=== PATIENT | male | born 1955 | race Caucasian/White ===

== ENCOUNTER 2017-10-16 06:27 | Day surgery (SDC) | payer OTHER ==
[~2017-10-16 06:27] MED LIST: Buffered Lidocaine 0.9% SYRIN* 5 ML/SYR SYRINGE INTRADERM ONE
[2017-10-16] MEDS ORDERED: Midazolam* 1 MG/ML 2 ML VIAL (2 MG) ONE ×2 (07:34→08:47)
--- NOTE | 2017-10-16 08:06 | RAD ---
Indication: Renal calculi, preshock wave lithotripsy. Comparison is made with previous exam dated September 20, 2017. Single view of the abdomen demonstrates calcification overlying the lower pole of the left kidney measuring 13 mm. There may be additional small 3 to 4 mm calcification inferior and medial. In the right kidney calcification measuring 12 mm is noted. There may be small additional calculi noted. No changes noted since previous exam. IMPRESSION: Multiple calculi overlying both kidneys measuring up to 13 mm on the left and 12 mm on the right. No changes noted since prior exam.
[2017-10-16] MEDS ORDERED: Naloxone* 0.4 MG/ML 1 ML VIAL IV PRN (08:36)
[2017-10-16] MEDS ORDERED: PROCHLORPERAZINE INJ 5 MG/ML 2 ML VIAL IV PRN (08:36)
[2017-10-16] MEDS ORDERED: DiMENhydriNATE IV* 50 MG/ML VIAL IV PUSH PRN (08:36)
[2017-10-16] MEDS ORDERED: Acetaminophen TAB* 325 MG PO PRN (08:36)
[2017-10-16] MEDS ORDERED: Iohexol 180 (CONTRAST) 10 ML SDV IV ONE (08:39)
[2017-10-16] MEDS ORDERED: Lidocaine 2% PF * 5 ML VIAL ONE (09:14)
[2017-10-16] MEDS ORDERED: Dexamethasone IV* 4 MG/ML 1 ML (4 MG) ONE (09:15)
[2017-10-16] MEDS ORDERED: Propofol* 10 MG/ML 20 ML BTL IV PUSH ONE (09:15)
[2017-10-16] MEDS ORDERED: fentaNYL* 50 MCG/ML 2 ML VIAL (100 MCG VIAL) ONE ×2 (09:18→11:19)
--- NOTE | 2017-10-16 09:19 | HP ---
CC: Dr. Galvin; Dr. Kern * ADMITTING HISTORY AND PHYSICAL: DATE OF ADMISSION: 10/16/17 PREOPERATIVE DIAGNOSIS: Bilateral renal calculi. PLANNED PROCEDURE: Right stent insertion and shockwave lithotripsy of right renal calculi. SURGEON: Castillo Kern MD. HISTORY OF PRESENT ILLNESS: Serge Hancock is a 62-year-old gentleman with a history of bilateral renal calculi who has been having increasing right flank pain and is now being brought in for right stent insertion and shockwave lithotripsy of right renal calculi. PAST MEDICAL HISTORY: Significant for: 1. Renal calculi. 2. Gout. 3. Hypertension. 4. High cholesterol. 5. History of thyroid cancer. MEDICATIONS: On admission: 1. Allopurinol 300 mg a day. 2. Norvasc 5 mg a day. 3. Indomethacin 50 mg t.i.d. 4. Valsartan 80 mg a day. 5. Atorvastatin 10 mg a day. 6. Levothyroxine 150 mcg a day. 7. Aspirin 81 mg a day. ALLERGIES: No known drug allergies. REVIEW OF SYSTEMS: He denies any chest pain or shortness of breath. There is no history of diabetes mellitus or any other major systemic illness. PHYSICAL EXAMINATION GENERAL: Reveals a pleasant middle-aged gentleman. VITAL SIGNS: Blood pressure is 130/94, pulse 93 per minute, temperature 97.6, oxygen saturation 98% on room air. LUNGS: Clear bilaterally. CARDIOVASCULAR: Regular rate and rhythm. S1, S2. ABDOMEN: Soft with mild bilateral flank tenderness. DIAGNOSTIC STUDIES/LAB DATA: His most recent ultrasound had revealed a 1.5-cm calculus in the lower pole of the right kidney and 0.8-cm calculus in the mid pole in addition to large left-sided calculi which are about 1.6 cm in the left kidney. IMPRESSION: Because of the large stone size and multiplicity, I have explained to him that he may require more than one procedure to render him stone free. The plan today is for right stent insertion and shockwave lithotripsy of right renal calculi. I have discussed the possible risks including bleeding, infection, incomplete fragmentation, and injury to the kidney. PLAN: Right stent insertion and shockwave lithotripsy of right renal calculi. [id number]/[facility] #: [id number] [facility]
[2017-10-16] MEDS ORDERED: Metoclopramide IV* 5 MG/ML 2 ML VIAL ONE (09:23)
[2017-10-16] MEDS ORDERED: Furosemide IV* 10 MG/ML 2 ML VIAL (20 MG) ONE (09:34)
[2017-10-16] MEDS ORDERED: Desflurane* 240 ML INH ONE (09:48)
[2017-10-16] MEDS ORDERED: EPHEDrine (Pressors)* 50 MG/ML VIAL ONE (09:56)
[2017-10-16] MEDS ORDERED: Tamsulosin CAP* 0.4 MG ONE (10:49)
[2017-10-16] MEDS ORDERED: oxyCODONE/Acetamin 5/325 MG* TAB ONE (11:02)
--- NOTE | 2017-10-16 11:14 | OP ---
CC: Dr. Naveen Galvin DATE OF OPERATION: 10/16/2017. DATE OF : 1955. AGE: 62-year-old male. SURGEON: Dr. Castillo Kern. ANESTHESIOLOGIST: Dr. Candelario. ANESTHESIA: Anesthesia. PRE-OP DIAGNOSIS: 1. Right renal calculi. 2. Right flank pain. POST-OP DIAGNOSIS: 1. Right renal calculi. 2. Right flank pain. OPERATIVE PROCEDURE: 1. Cystoscopy, right retrograde pyelogram and right stent insertion. 2. Shockwave lithotripsy of right renal calculus. COMPLICATIONS: None. INDICATIONS: Serge Hancock is a 62-year-old gentleman who was evaluated and noted to have bilate ral renal calculi. He has had increasing right flank pain and is now being brought in for right sten t insertion and shockwave lithotripsy. He has two stones in the right kidney and I have explained to him that I may only be able to fragment one stone because of the limitations of the number of shock waves that I can use safely. POSTOPERATIVE CONDITION: Stable. DESCRIPTION OF PROCEDURE: After induction of general anesthesia, the patient was placed on the litho tripsy table in the dorsal lithotomy position. Sequential compression devices were in place and func tioning. Initial cystoscopy revealed a mild stricture at the urethral meatus. The remainder of the urethra was unremarkable. The prostate was mildly enlarged. The bladder was examined. A tiny bladd er calculus was noted which was flushed out. A guidewire was introduced into the right ureter. Retr ograde pyelogram revealed no evidence of obstruction and no persistent filling defects, and a 7 Frenc h stent was introduced and positioned under fluoroscopy with good proximal and distal positioning obt ained. Next, the patient was placed on the lithotripsy table in supine position. The dominant calculus was in the upper pole of the right kidney and this was targeted for shockwave lithotripsy. Shockwave lithotripsy was commenced at a rate of 90 shocks per minute. After the initial 300 shocks, there was a pause in lithotripsy for several minutes in an effort to minimize any potential trauma t o the kidney. Lithotripsy was then resumed. Periodic imaging revealed good localization and a total of 2400 shocks were delivered. Because of the large size of this calculus, I did not have any shock waves left over to use for the other stone in the right kidney, so that was not treated. The plan i s to obtain a follow-up x-ray to assess the degree of fragmentation of the upper pole calculus before deciding on when to treat the additional right renal calculus. He also has a large calculus in the left kidney which will require treatment at the later date also. The patient tolerated the procedure satisfactorily and was transferred back to the recovery area in s table condition. [id number]/[facility] #: [id number]
[2017-10-16] MEDS: fentaNYL* 50 MCG/ML 2 ML VIAL (100 MCG VIAL) IV PRN ×2 (11:19→11:26)
[2017-10-16 11:36] VITALS: BP 154/113
--- NOTE | 2017-10-16 15:06 | RAD ---
Indication: Right-sided stent insertion. Single view of the abdomen demonstrates right ureteral stent in place. Calcification is noted in the upper pole of the right kidney. IMPRESSION: Right ureteral stent in place. Calcification in the upper and midpole of the right kidney.
== END 2017-10-16 12:25 | disposition home or self-care (01) ==
LOC: OR 06:27
PROVIDERS: ATTEND Urology
DX: N20.0 Calculus of kidney (principal); I10 Essential (primary) hypertension; M10.9 Gout, unspecified; E78.00 Pure hypercholesterolemia, unspecified; Z85.850 Personal history of malignant neoplasm of thyroid; Z79.899 Other long term (current) drug therapy
CPT/HCPCS: 74018; A9270-GY; C1876; J1100; J1940; J2250; J2704; J2765; J3010

== ENCOUNTER 2018-02-19 05:51 | Day surgery (SDC) | payer OTHER ==
--- NOTE | 2018-02-07 16:37 | HP ---
CC: Dr. Galvin * DATE OF ADMISSION: 02/19/2018 AGE: 62-year-old male. ADMITTING DIAGNOSIS: Right renal calculi. PLANNED PROCEDURE: Right stent insertion and shockwave lithotripsy of right renal calculi. SURGEON: Dr. Castillo Kern. HISTORY OF PRESENT ILLNESS: Serge Hancock is a 62-year-old gentleman with a history of multiple bilateral renal calculi. He has previously undergone treatment for a calculus in the right kidney and at that time had been noted to have another large calculus which could not be treated. He is now being brought in for right stent insertion and lithotripsy. PAST MEDICAL HISTORY: Significant for: 1. Hypertension. 2. High cholesterol. 3. Gout. 4. Hypothyroidism. MEDICATIONS ON ADMISSION: 1. Allopurinol 200 mg a day. 2. Levothyroxine 135 mcg daily. 3. Amlodipine 5 mg a day. 4. 8 mg a day. 5. Atorvastatin 10 mg a day. ALLERGIES: No known drug allergies. REVIEW OF SYSTEMS: He is otherwise in good health. There is no history of diabetes mellitus or any other major systemic illness. PHYSICAL EXAMINATION GENERAL: Pleasant, healthy-appearing, middle-aged gentleman. VITAL SIGNS: Blood pressure 140/80, pulse 92 per minute, temperature 96.9, oxygen saturation 98 percent on room air. CARDIOVASCULAR: Regular rate and rhythm. S1, S2. LUNGS: Clear bilaterally. ABDOMEN: Soft without masses. There is mild right flank tenderness. IMPRESSION: [id number]-old gentleman with multiple bilateral renal calculi. PLAN: Planned procedure is right stent insertion and shockwave lithotripsy of right renal calculi. [id number]/[facility] #: [id number] [facility]
[2018-02-19] MEDS ORDERED: Famotidine IV* 10 MG/ML 2 ML (20 mg) IV ONE (06:00)
[2018-02-19] MEDS ORDERED: Buffered Lidocaine 0.9% SYRIN* 5 ML/SYR SYRINGE INTRADERM ONE (06:00)
[2018-02-19] MEDS ORDERED: Famotidine IV* 10 MG/ML 2 ML (20 mg) ONE (06:53)
[2018-02-19] MEDS ORDERED: cefTRIAXone(*) 2 GM ADDV.VIAL IVPB ONE (06:53)
[2018-02-19] MEDS ORDERED: Labetalol IV* 5 MG/ML 20 ML VIAL ONE (06:54)
[2018-02-19] MEDS ORDERED: Ondansetron INJ* 2 MG/ML VIAL ONE (07:11)
[2018-02-19] MEDS ORDERED: Propofol* 10 MG/ML 20 ML BTL IV PUSH ONE (07:11)
[2018-02-19] MEDS ORDERED: Ketorolac INJ* 30 MG/ML 1 ML VIAL ONE (07:11)
[2018-02-19] MEDS ORDERED: Lidocaine 2% PF * 5 ML VIAL ONE (07:11)
[2018-02-19] MEDS ORDERED: Dexamethasone IV* 4 MG/ML 1 ML (4 MG) ONE (07:11)
[2018-02-19] MEDS ORDERED: Iohexol 180 (CONTRAST) 10 ML SDV IV ONE (07:12)
[2018-02-19] MEDS ORDERED: KETAMINE HCL* 50 MG/ML 10 ML VIAL ONE (07:12)
[2018-02-19] MEDS ORDERED: Midazolam* 1 MG/ML 5 ML VIAL (5 MG) ONE (07:12)
[2018-02-19] MEDS ORDERED: fentaNYL* 50 MCG/ML 2 ML VIAL (100 MCG VIAL) ONE ×2 (07:12→10:03)
[2018-02-19] MEDS ORDERED: Enalaprilat IV* 1.25 MG/ML 2 ML VIAL (2.5 MG) ONE ×2 (07:28)
--- NOTE | 2018-02-19 07:51 | RAD ---
INDICATION: Planned shock wave lithotripsy for right renal calculus COMPARISON: Similar KUB dated December 12, 2017 TECHNIQUE: 2 views the abdomen were obtained. FINDINGS: Overlying the right renal collecting system are at least 3 focal calcifications, the largest lower pole measuring 12 mm in greatest dimension and 2 relatively smaller calcifications each measuring 6 mm overlying the lower pole and upper pole of the right renal collecting system. At the lower pole of the left renal collecting system is a 15 mm calcification. No definite large calcification overlying either ureter or the urinary bladder. Calcification overlying the right upper quadrant could be due to gallstones. The gas and stool pattern of the abdomen is otherwise normal. IMPRESSION:BILATERAL RENAL CALCIFICATIONS DESCRIBED ABOVE SIMILAR IN APPEARANCE TO THE MOST RECENT DECEMBER 12, 2017 KUB.
[2018-02-19] MEDS ORDERED: Furosemide IV* 10 MG/ML 2 ML VIAL (20 MG) ONE ×2 (09:43→11:22)
[2018-02-19] MEDS ORDERED: EPHEDrine (Pressors)* 50 MG/ML VIAL ONE (10:06)
[2018-02-19] MEDS ORDERED: fentaNYL* 50 MCG/ML 2 ML VIAL (100 MCG VIAL) IV PRN (10:10)
[2018-02-19] MEDS ORDERED: Naloxone* 0.4 MG/ML 1 ML VIAL IV PRN (10:10)
[2018-02-19] MEDS ORDERED: Ondansetron INJ* 2 MG/ML VIAL IV PRN (10:10)
[2018-02-19] MEDS ORDERED: Tamsulosin CAP* 0.4 MG ONE (11:22)
[2018-02-19 12:36] VITALS: BP 141/90
--- NOTE | 2018-02-19 14:34 | RAD ---
Indication: Lithotripsy, renal calculus. Comparison is made with previous exam earlier the same day. Single view of the abdomen demonstrates right ureteral stent in place. There is fragmentation of the dominant calculi in the right renal collecting system. Left renal calculi appear similar to that seen previously. Calculi in the upper pole of the right kidney remains unchanged. IMPRESSION: Dominant calculi overlying the right renal pelvis is fragmented. Right ureteral stent is in place. Calculi in the upper pole of the right kidney in the lower pole of left kidney appears to be unchanged.
--- NOTE | 2018-02-19 21:23 | OP ---
CC: Dr. Galvin * DATE OF OPERATION: 02/19/18 - [facility] DATE OF : [birth year] SURGEON: Castillo Kern MD ANESTHESIOLOGIST: Dr. Mckeon. ANESTHESIA: General. PRE-OP DIAGNOSIS: Right renal calculi. POST-OP DIAGNOSIS: Right renal calculi. OPERATIVE PROCEDURE: 1. Cystoscopy, right retrograde, right stent insertion. 2. Shockwave lithotripsy of multiple right renal calculi. COMPLICATIONS: None. POSTOPERATIVE CONDITION: Stable. STENT USED: 7-Icelandic stent right ureter. INDICATIONS: Serge Hancock is a 62-year-old gentleman with multiple bilateral renal calculi. He had previously undergone lithotripsy of several right-sided calculi, but had one large calculus which has not been treated. OPERATIVE FINDINGS: 1. Moderately enlarged prostate. 2. Multiple right renal calculi. DESCRIPTION OF PROCEDURE: After induction of general anesthesia, the patient was placed in dorsal lithotomy position. Sequential compression devices were in place and functioning. Initial cystoscopy revealed a mild stricture at the urethral meatus. The remainder of the urethra was unremarkable. The prostate was significantly enlarged. The bladder was examined. There was no evidence of any suspicious bladder lesions noted. There were mild changes suggestive of chronic inflammation noted in the floor of the bladder. Right retrograde pyelogram revealed fullness of the right collecting system with multiple calculi noted in the right kidney. A 7-Icelandic stent was introduced and positioned under fluoroscopy with good proximal and distal positioning obtained. Next, the patient was placed on the lithotripsy table in supine position. The dominant calculus was in the upper pole of the right kidney with additional stones noted in the mid to lower pole. Shockwave lithotripsy was commenced at a rate of 60 shocks per minute. After the initial 300 shocks, there was a pause in lithotripsy for several minutes in an effort to minimize any potential trauma to the kidney. Lithotripsy was then resumed and a total of 2400 shocks were distributed between the three calculi. The patient tolerated the procedure satisfactorily and was transferred back to the recovery area in stable condition. My plan is to obtain a postoperative x- ray to assess the degree of fragmentation before deciding on stent removal. [id number]/[facility] #: [id number] MTDD
== END 2018-02-19 12:51 | disposition home or self-care (01) ==
LOC: OR 05:51
PROVIDERS: ATTEND Urology
DX: N20.0 Calculus of kidney (principal); I10 Essential (primary) hypertension; E03.9 Hypothyroidism, unspecified; E78.00 Pure hypercholesterolemia, unspecified; M10.9 Gout, unspecified; K21.9 Gastro-esophageal reflux disease without esophagitis; Z85.850 Personal history of malignant neoplasm of thyroid
CPT/HCPCS: 74018; C1876; J0696; J1100; J1885; J1940; J2250; J2405; J2704; J3010

== ENCOUNTER 2019-04-04 22:38 | Inpatient (IN) | payer OTHER ==
--- NOTE | 2019-04-04 23:07 | ED ---
Complex/Multi-Sys Presentation - HPI Summary HPI Summary: This pt Is a 63 Y/O M presenting to [facility] with his for a CC of abnormal bleeding that has been occurring for 2 weeks. He states that the symptoms started with a nose bleed and bleeding gums and has increased to other parts of his body including both thumbs and his R forearm and bicep. Currently he states that he has a R nostril bleed that has been present since 1529 today. He also states that he has developed ulcers on the roof of his mouth. He also states red dots appearing over his body. He denies any recent fatigue, fevers, CP, SOB , coughs, and weight loss. He has no aggravating or alleviating factors. He states that he has a PMHx of thyroid complications and high blood pressure. He states that he has a social history of drinking a beer a night. - History Of Current Complaint Chief Complaint: EDEpistaxis Time Seen by Provider: 04/04/19 22:49 Hx Obtained From: Patient Onset/Duration: Sudden Onset, Lasting Weeks - 3, Still Present Timing: Constant Severity Currently: None Severity Initially: Mild Aggravating Factor(s): none Alleviating Factor(s): none Associated Signs And Symptoms: Negative: SOB, Cough, Chest Pain, Fever - Allergies/Home Medications Allergies/Adverse Reactions: Allergies Allergy/AdvReac Type Severity Reaction Status Date / Time No Known Allergies Allergy Verified 04/04/19 22:43 Home Medications: Home Medications cloNIDine TAB* [Catapres 0.1 MG TAB*] 0.1 mg PO Q8HR PRN 04/04/19 [History Confirmed 04/04/19] PMH/Surg Hx/FS Hx/Imm Hx Previously Healthy: Yes Endocrine/Hematology History: Reports: Hx Thyroid Disease - HX OF THYROIDECTOMY- 7-8 YRS AGO FOR CANCER Cardiovascular History: Reports: Hx Hypertension - ON MEDICATION FOR, Other Cardiovascular Problems/Disorders - HIGH CHOLESTEROL Denies: Hx Pacemaker/ICD History: Reports: Hx Kidney Stones - BILATERAL Sensory History: Denies: Hx Contacts or Glasses, Hx Hearing Aid Opthamlomology History: Denies: Hx Contacts or Glasses - Surgical History Surgery Procedure, Year, and Place: [id number] YRS AGO. [address] [facility] [place] Hx Anesthesia Reactions: No - Immunization History Immunizations Up to Date: Yes Infectious Disease History: No Infectious Disease History: Reports: Traveled Outside the [place] in Last 30 Days - [place] - Family History Known Family History: Positive: Hypertension Negative: Cardiac Disease, Diabetes - Social History Occupation: Retired Lives: With Family Alcohol Use: Daily Alcohol Amount: 1 PER DAY Hx Substance Use: No Substance Use Type: Reports: None Hx Tobacco Use: No Smoking Status (MU): Never Smoked Tobacco Have You Smoked in the Last Year: No Review of Systems Constitutional: Negative - weight loss Negative: Fever, Fatigue ENT: Other - States mouth sores/gum bleeding Positive: Epistaxis - R nare Negative: Chest Pain Negative: Shortness Of Breath, Cough Musculoskeletal: Other - Bilateral thumbs and R forearm/bicep bleeding Skin: Other - States that he has beel bleeding/developing bruises over his body Positive: Rash - States red spots appearing over his body All Other Systems Reviewed And Are Negative: Yes Physical Exam - Summary Physical Exam Summary: Constitutional: Well-developed, Well-nourished, Alert. (-) Distressed Skin: Warm, Dry, Scattered petechiae over entire body mostly arms and abdomen, Bruising on both thumbs, R forearm and bicep HENT: Normocephalic; Atraumatic, Petechiae of the hard pallet, dried blood in the R nare. Two small ulcers oral mucosa. Eyes: Conjunctiva normal Neck: Musculoskeletal ROM normal neck. (-) JVD, (-) Stridor, (-) Nuchal rigidity Cardio: Rhythm regular, rate normal, Heart sounds normal; Intact distal pulses; Radial pulses are 2+ and symmetric. (-) Murmur Pulmonary/Chest wall: Effort normal. (-) Respiratory distress, (-) Wheezes, (-) Rales Abd: Soft, (-) tenderness, (-) Distension, (-) Guarding, (-) Rebound Musculoskeletal: (-) Edema Lymph: (-) Cervical adenopathy Neuro: Alert, Oriented x3 Psych: Mood and affect Normal Triage Information Reviewed: Yes Vital Signs On Initial Exam: Initial Vitals Temp Pulse Resp BP Pulse Ox 97.4 F 94 16 186/131 98 04/04/19 22:40 04/04/19 22:40 04/04/19 22:40 04/04/19 22:40 04/04/19 22:40 Vital Signs Reviewed: Yes Procedures - Sedation Patient Received Moderate/Deep Sedation with Procedure: No Diagnostics - Vital Signs Vital Signs Temp Pulse Resp BP Pulse Ox 04/04/19 22:40 97.4 F 94 16 186/131 98 - Laboratory Result Diagrams: 04/04/19 23:06 04/04/19 23:05 Lab Statement: Any lab studies that have been ordered have been reviewed, and results considered in the medical decision making process. Re-Evaluation - Re-Evaluation First Eval Comment: Platelets 4, will d/w hematology Complex Multi-Symp Course/Dx Course Of Treatment: 63 y/o male p/w epistaxis and gum bleeding. PE with petechiae of palate, scattered ecchymosis to arms, petechiae of abdomen, blood in R nare. - check labs. Ddx includes ITP, malignancy - Diagnoses Provider Diagnoses: Thrombocytasthenia, Cytopenia, Nasal bleeding - Physician Notifications Discussed Care Of Patient With: Giselle Pedroza Time Discussed With Above Provider: 00:00 Instructed by Provider To: Admit As Inpatient - Dr. Pedroza, hematology, recommended giving the pt 80 mgs of Prednisone and to admit the pt to the floor where she will see him tomorrow. Will hold on transfusion as likely ITP and no life threatening bleeding. Dr. Benavides, Hospitalist, accepts the pt. Admit/Transition Orders Completed By ED Provider: Yes Discharge ED - Sign-Out/Discharge Documenting (check all that apply): Patient Departure - discharge - Discharge Plan Condition: Stable Disposition: ADMITTED TO [facility] Referrals: Naveen Galvin DO [Primary Care Provider] - - Billing Disposition and Condition Condition: STABLE Disposition: Admitted to [facility] - Attestation Statements Document Initiated by Scribe: Yes Documenting Scribe: Chato Garcia Provider For Whom Rosa Mariaibe is Documenting (Include Credential): Neel Yoder MD Scribe Attestation: Chato Russo, scribed for Neel Yoder MD on 04/05/19 at 0135. Scribe Documentation Reviewed: Yes Provider Attestation: The documentation as recorded by the [facility] kitchen accurately reflects the service I personally performed and the decisions made by me, Neel Yoder MD Status of Scribe Document: Viewed
[2019-04-04] MEDS ORDERED: Oxymetazoline 0.05% NASAL SPR* 15 ML BTL BOTH NARES ONE (23:09)
[2019-04-04 23:19] LABS: INR 0.99 (0.82-1.09)
[2019-04-04 23:25] LABS: Hematocrit 41 % (42-52); Mean Corpuscular HGB Conc 34 g/dL (31-36); Mean Corpuscular Hemoglobin 30 pg (27-31); Mean Corpuscular Volume 89 fL (80-94); Red Blood Count 4.62 10^6 /uL (4.18-5.48); Red Cell Distribution Width 14 % (10-15); White Blood Count 8.7 10^3/uL (3.5-10.8)
[2019-04-04 23:28] LABS: Albumin 4.2 g/dL (3.2-5.2); Albumin/Globulin Ratio 1.4 (1-3); BUN/Creatinine Ratio 21.6 (8-20); Calcium 9.1 mg/dL (8.6-10.3); EGFR African American 76.5 (>60); EGFR Non-African American 63.2 (>60); Globulin 2.9 g/dL (2-4); Total Bilirubin 0.6 mg/dL (0.2-1.0); Total Protein 7.1 g/dL (6.4-8.9)
[2019-04-04 23:29] LABS: ABS Eosinophils 0.3 10^3/ul (0-0.6); ABS Lymphocytes 3.1 10^3/ul (1.0-4.8); ABS Monocytes 0.8 10^3/ul (0-0.8); ABS Neutrophils 4.6 10^3/ul (1.5-7.7); Eosinophil % 3.4 %; Lymphocyte % 35.2 %; Nucleated Red Blood Cells % 0.1
[2019-04-04 23:50] LABS: Mean Platelet Volume 10.4 fL (7.4-10.4); Platelet Count 4 10^3/uL (150-450)
[2019-04-04 23:52] LABS: Potassium 3.4 mmol/L (3.5-5.0)
[2019-04-05] MEDS ORDERED: predniSONE TAB* 20 MG PO ONE
[2019-04-05 02:51] LABS: Platelet Count, Citrated 2 10^3/ul (150-450)
[2019-04-05] MEDS ORDERED: cloNIDine TAB* 0.1 MG PO PRN (03:00)
[2019-04-05] MEDS: NS 0.9% 1000 ML** 1,000 ML IV SCH ×2 (04:34→14:55)
[2019-04-05 06:17] LABS: ABS Basophils 0.1 10^3/ul (0-0.2); ABS Monocytes 0.2 10^3/ul (0-0.8); ABS Neutrophils 9.6 10^3/ul (1.5-7.7); Eosinophil % 0.3 %; Hematocrit 43 % (42-52); Hemoglobin 14.7 g/dL (14.0-18.0); Lymphocyte % 16.7 %; Mean Corpuscular HGB Conc 35 g/dL (31-36); Mean Corpuscular Hemoglobin 31 pg (27-31); Mean Corpuscular Volume 89 fL (80-94); Red Cell Distribution Width 14 % (10-15); White Blood Count 11.9 10^3/uL (3.5-10.8)
[2019-04-05] MEDS: Levothyroxine TAB* 137 MCG TAB PO SCH (06:25)
[2019-04-05 06:32] LABS: Calcium 9.3 mg/dL (8.6-10.3); EGFR African American 78.8 (>60); EGFR Non-African American 65.1 (>60)
[2019-04-05 06:37] LABS: Mean Platelet Volume 10.6 fL (7.4-10.4); Platelet Count 3 10^3/uL (150-450)
[2019-04-05] MEDS: Valsartan TAB* 80 MG PO SCH (08:46)
[2019-04-05] MEDS: amLODIPine TAB* 5 MG PO SCH (08:46)
[2019-04-05] MEDS: Atorvastatin* 10 MG TAB PO SCH (08:46)
[2019-04-05] MEDS ORDERED: amLODIPine TAB* 5 MG PO SCH (09:00)
--- NOTE | 2019-04-05 09:07 | HP ---
CC: Dr. Giselle Pedroza; Dr. Naveen Galvin* ADMISSION HISTORY AND PHYSICAL: DATE OF ADMISSION: 04/05/19 PRIMARY CARE PROVIDER: Dr. Naveen Galvin. CHIEF COMPLAINT: Nasal epistaxis. HISTORY OF PRESENT ILLNESS: This is a 63-year-old male with past medical history of hypertension, dyslipidemia, gout, hypothyroidism, came in with epistaxis was noted to be in his usual state of health until 3 weeks ago when he had chest wall abscess, which drained on its own and it healed. A week after it healed, the patient noticed that any small cuts and bruises would bleed profoundly. He did not think much of it until yesterday afternoon he started having epistaxis, which would not stop bleeding. He also noticed multiple bruising even with minor trauma, so he decided to come to the ER. In the ER, the patient was noted to have a low platelet count of 4000, and Hematology was consulted and the patient was recommended for admission to the hospital. PAST MEDICAL HISTORY: As mentioned hypertension, high cholesterol, gout, hypothyroidism, kidney stone. PAST SURGICAL HISTORY: Thyroidectomy and right-sided ESWL procedure. HOME MEDICATIONS: The patient is currently on: 1. Clonidine 0.1 mg p.r.n. for anxiety and high blood pressure. 2. Amlodipine 5 mg oral daily every morning. 3. Levothyroxine 137 mcg p.o. daily every morning. 4. Candesartan 16 mg p.o. daily. 5. Lipitor 10 mg every morning. 6. Allopurinol 300 mg p.o. q.a.m. ALLERGIES: No known drug allergies. FAMILY HISTORY: Father is alive at age 93. Mother in between age 88 or 90 , the patient is not sure, had history of Parkinson's disease. There is no family history of any bleeding disorder or any leukemia. SOCIAL HISTORY: The patient denies smoking or drug use. He does have a glass of wine with dinner, but nothing more usually every few days, last use was about 3 days ago. 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 He is otherwise full code, lives with his , who is his surrogate decision maker. REVIEW OF SYSTEMS: A 14-point review of systems did not reveal any information. No recent diarrheal illness. No sick contacts. No fever. No chills. No chest pain. No shortness of breath. No change in medications. PHYSICAL EXAMINATION GENERAL: The patient is awake, alert, and oriented x3, does not appear to be in any acute distress. VITAL SIGNS: In the ER, BP was noted to be 173/106, heart rate 84, respiration rate 15, saturating 97% on room air, temperature 97.4. HEAD AND NECK: Atraumatic and normocephalic. Bilateral pupils are reactive. The patient was having continuous bleeding from the nares and had multiple petechial lesions within the oral cavity. There was also the gumline that was very bloody. Neck supple. No jugular venous distention. LUNGS: Clear to auscultation bilaterally. No wheezing, no rhonchi, or rales. HEART: S1, S2. Regular rate and rhythm. ABDOMEN: Soft, nontender, nondistended. EXTREMITIES: No cyanosis, clubbing, or edema. SKIN: The patient had multiple petechial and purpuric lesions all over the extremities both lower extremity, upper extremity, and in his torso. DIAGNOSTIC STUDIES/LAB DATA: CBC shows normal white count, normal hemoglobin, but platelet count was noted to be 4000. Repeat citrated platelet count was still noted to be 2000. Coagulation profile shows INR of 0.99. Comprehensive metabolic panel was unremarkable except for minimally elevated potassium at 3.4 , random glucose minimally elevated at 164. IMPRESSION: This is a 63-year-old gentleman with hypertension, dyslipidemia, gout, and hypothyroidism, here due to bleeding from nose and excessive bleeding for the last couple of weeks, noted to have thrombocytopenia, likely idiopathic thrombocytopenic purpura. ASSESSMENT: 1. Thrombocytopenia secondary to idiopathic thrombocytopenic purpura, could be related to the recent infection, although the patient does not have any diarrheal illness but the most common cause of sugar related thrombocytopenia and did not change his prescription to cause any drug-induced thrombocytopenia. The patient's case was discussed by the ER physician with reject opener and filler, who recommended prednisone for now and possible IVIG in the morning. I have placed a formal consult in for Dr. Giselle Pedroza to evaluate the patient in the morning. At this point, given the limited bleeding, there is no indication for platelet transfusion. Further testing would be based on Hematology recommendation. 2. History of hypertension. Restart home medications. 3. History of dyslipidemia, restart statin. 4. History of hypothyroidism, restart levothyroxine. 5. DVT prophylaxis. Given the patient's bleeding and thrombocytopenia, heparin and Lovenox would be contraindicated and given his propensity to bleed, even an SCD could cause more abrasion, bleeding and petechiae, so even the SCDs would be held for now. 6. Code status: The patient is a full code with being surrogate decision maker. [id number]/[facility] #: [id number] MTDD
--- NOTE | 2019-04-05 10:30 | CONSULT ---
Subjective Date of Service: 04/05/19 Interval History: 63 y/o M with PMH of HTN, HLD, Gout, Hypothyroidism presented with Epistaxis that started yesterday. He was apparently well 3 weeks ago when he was having pain and swelling on anterior chest wall. He reports that he had cyst-like lesion on the same part for more than a year which was nonpainful and with no redness. Then he developed redness and pain in the same location and it drained on its own draining pus. He did not seek medical care at that time and did not take any antibiotics. He then travelled to [facility] and there he noticed he was bruising easily and even with minor bleed he was bleeding profusely. He reports that even a wave of water caused him to bruise. He also had gum bleeding and yesterday he had bleeding from nose which was acute on onset and was progressive and was bright red in color. On bending his head back he could feel that blood was dropping on his mouth. He reports that this is first time he is having this issue. He denies history of fever, chills, sore throat, malaise or night sweats. He denies diarrhea, numbness, tingling or other neurological symptom. He has not noticed any swelling on other part of body. He has history of thyroidectomy and he does not remember any complication at that time. Past Medical/Family/Social History: Medical 1.Hypertension 2. Hyperlipidemia 3. Gout 4. Hypothyroidism Surgery 1. Thyroidectomy Family - Family history positive for Heart disease, Hypertension and parkinson. Negative for any cancer, bleeding disorder. Consulting Service: Hematology/Oncology Reason for Consult: Patient was consulted for Bleeding with low platelet count. Review of Systems - Medications/Allergies Allergies/Adverse Reactions: Allergies Allergy/AdvReac Type Severity Reaction Status Date / Time No Known Allergies Allergy Verified 04/04/19 22:43 Medications: Current Medications [facility]od[facility] ([facility]*) [facility] [place] Admin: 04/05/19 08:46 Dose: 10 mg Atorvastatin Calcium (Lipitor*) 10 mg PO QAM [facility] Last Admin: 04/05/19 08:46 Dose: 10 mg Sodium Chloride (Ns 0.9% 1000 Ml) 1,000 mls @ 100 mls/hr IV PER RATE [facility] Last Admin: 04/05/19 04:34 Dose: 100 mls/hr Levothyroxine Sodium (Synthroid Tab*) 137 mcg PO 0600 [facility] Last Admin: 04/05/19 06:25 Dose: 137 mcg Valsartan (Diovan Tab*) 80 mg PO DAILY [facility] Last Admin: 04/05/19 08:46 Dose: 80 mg Objective Active Medications: Amlodipine Besylate (Norvasc Tab*) 10 mg PO QAM [facility] Last Admin: 04/05/19 08:46 Dose: 10 mg Atorvastatin Calcium (Lipitor*) 10 mg PO QAM [facility] Last Admin: 04/05/19 08:46 Dose: 10 mg Sodium Chloride (Ns 0.9% 1000 Ml) 1,000 mls @ 100 mls/hr IV PER RATE [facility] Last Admin: 04/05/19 04:34 Dose: 100 mls/hr Levothyroxine Sodium (Synthroid Tab*) 137 mcg PO 0600 [facility] Last Admin: 04/05/19 06:25 Dose: 137 mcg Valsartan (Diovan Tab*) 80 mg PO DAILY [facility] Last Admin: 04/05/19 08:46 Dose: 80 mg Vital Signs - 8 hr 04/05/19 04/05/19 04/05/19 02:54 03:00 03:17 Temperature Pulse Rate 84 87 84 Respiratory 15 18 16 Rate Blood Pressure 173/106 163/107 (mmHg) O2 Sat by Pulse 97 97 96 Oximetry 04/05/19 04/05/19 04/05/19 03:40 03:47 04:00 Temperature 98.5 F Pulse Rate 85 90 86 Respiratory 16 17 17 Rate Blood Pressure 162/108 162/108 (mmHg) O2 Sat by Pulse 96 96 96 Oximetry 04/05/19 04/05/19 04/05/19 04:30 07:15 07:23 Temperature 0 F 97.5 F Pulse Rate 0 90 Respiratory 0 20 18 Rate Blood Pressure 0/0 160/97 (mmHg) O2 Sat by Pulse 0 98 Oximetry Oxygen Devices in Use Now: None Exam: Patient is lying on a bed with no acute distress. HEENT: Dark red streaks of blood in lip. Gum bleeding noted. Lungs: Clear with no added sounds. Heart: S1/S2 heard with no murmur Abdomen: Purpura on abdomen. Slight buldging above umbilicus. No hepatosplenomegaly. Skin and Extremities: Petechiae noted on anterior aspect of both leg with scattered ecchymosis on back of right shoulder, both arms, elbow and on rigth thumb. Neuro: Alert, oriented and conscious. Moving all four extremity. Result Diagrams: 04/05/19 06:05 04/05/19 06:05 Assess/Plan/Problems-Billing Assessment: 63 y/o M with PMH of HTN, HLD, Gout, Hypothyroidism presented with epistaxis, easy bruising and bleeding with recent chest wall abscess. Found to have thrombocytopenia(Plt-3L) with normal WBC and RBC. Most likely ITP - Patient Problems (1) Bleeding disorder Current Visit: Yes Status: Acute Code(s): D69.9 - HEMORRHAGIC CONDITION, UNSPECIFIED SNOMED Code(s): 84898517 Comment: - His easy bruising and bleeding immediately after trauma points to bleeding problme, not coagulation; confirmed by low platelet count. -Etiology: -Most likely ITP- it is daignosis of exclusion-His WBC and RBC is normal which is less likely in lymphoproliferative/myelodispalastic disorder. -Less likely TTP- no fever and neurological symptom and his renal function is normal -less likely HUS- even though positive travel history, no diarrhea and renal dysfunction and hemolysis. -less likely hereditary cause- negative family history, previous surgery without complication and no prior history - We will give him oral prednisone 60 mg daily with protonix 40 mg. - 1 U of platelet infusion now with repeat CBC at 4:00 Pm -IVIG 1g/kg daily for 2 days -Closely follow blood glucose and monitor for any bleeding -He should avoid any trauma because of high risk of bleeding -He will need outpatient follow up with Dr. marc in 4 weeks. (2) Hypertension Current Visit: Yes Status: Acute Code(s): I10 - ESSENTIAL (PRIMARY) HYPERTENSION SNOMED Code(s): 51687986 Comment: On valsartan and amlopdipine (3) Hyperlipidemia Current Visit: Yes Status: Acute Code(s): E78.5 - HYPERLIPIDEMIA, UNSPECIFIED SNOMED Code(s): 10733094 Comment: on atorvastatin (4) DVT prophylaxis Current Visit: Yes Status: Acute Code(s): Z29.9 - ENCOUNTER FOR PROPHYLACTIC MEASURES, UNSPECIFIED SNOMED Code(s): 991713753 Comment: None because of severe thrombocytopenia (5) Full code status Current Visit: Yes Status: Acute Code(s): Z78.9 - OTHER SPECIFIED HEALTH STATUS SNOMED Code(s): 472079131 Status and Disposition: Medicine Inpatient; Hem/Onc following Attending: Wes Marc Attestation Documenting Resident: Tonia Boyce Supervising Physician: Wes Marc Attending/Supervising Physician Comment: Patient discussed with resident seen and examined. Agree with above assessment. Progressive bleeding over 3 weeks with epistaxis day prior to admission. No symptoms malignancy, no h/o immune disease. PE: OM bleeding, diffuse petechial rash. CBC plts 3,000, Nml WBC, RBC. Blood film w/ large plts but otherwise negative. Plan per resident w/Prednisone, IVIG, plts today. Can be discharged once Plts > 20,000. Follow up in clinic will be next week if d/c over weekend. Attestation: This service has been performed in part by a resident under the direction of a teaching physician.I, Wes Marc, performed the service, or was physically present during the critical, or garibay portions of the service, furnished by the resident. I participated in the management of the patient.
[2019-04-05] MEDS: Pantoprazole TAB * 40 MG TAB PO SCH (11:26)
[2019-04-05] MEDS: predniSONE TAB* 20 MG PO SCH (11:27)
[2019-04-05] MEDS ORDERED: [UNRECOGNIZED DRUG - OTHER] IV SCH (12:00)
[2019-04-05] MEDS ORDERED: IMMUNE GLOBULN IV SCH ×2 (12:00→13:48)
--- NOTE | 2019-04-05 12:08 | HP ---
H&P (Free Text) History and Physical: CC: "Epistaxis for prolonged period" HPI: Pt has had abscess on R anterior chest wall for over 1 year duration. Recently abscess spontaneously drained 3 weeks ago. Pt recently traveled to [place] with his were he noticed he had gum bleeding on brushing, mouth sores, and was bruising from minor trauma. Pt admits to having these symptoms prior to travel. Patient noticed nose bleeding on 04/04/19 and could not get bleeding to stop so proceeded to E.R. Pt admits to ecchymosis, petechiae. Pt denies fever/chills, N/V, loss of appetite/weight loss, chest palpitations, SOB , abdominal pain, dysuria, joint pain, myalgia, lethargy or problems c/ BMs. Amlodipine Besylate (Norvasc Tab*) 10 mg PO QAM [facility] Last Admin: 04/05/19 08:46 Dose: 10 mg Atorvastatin Calcium (Lip[facility]*) [facility] [place] Admin: 04/05/19 08:46 Dose: 10 mg Sodium Chloride (Ns 0.9% 1000 Ml) 1,000 mls @ 100 mls/hr IV PER RATE [facility] Last Admin: 04/05/19 04:34 Dose: 100 mls/hr Immune Globulin 80 gm/ Immune (Globulin 8 gm/ IV Solution) 880 mls @ 0 mls/hr IV DAILY@1200 [place]; Protocol Stop: 04/06/19 12:01 Levothyroxine Sodium (Synthroid Tab*) 137 mcg PO 0600 [facility] Last Admin: 04/05/19 06:25 Dose: 137 mcg Pantoprazole Sodium (Protonix Tab*) 40 mg PO DAILY [facility] Last Admin: 04/05/19 11:26 Dose: 40 mg Prednisone (Deltasone Tab*) 60 mg PO DAILY [facility] Last Admin: 04/05/19 11:27 Dose: 60 mg Valsartan (Diovan Tab*) 80 mg PO DAILY [facility] Last Admin: 04/05/19 08:46 Dose: 80 mg Home Medications 3 Medication Instructions Recorded Confirmed Type Allopurinol TAB* [Zyloprim 300 MG 300 mg PO [facility] 10/10/17 04/04/19 History TAB*] Atorvastatin* [Lipitor*] 10 mg PO [facility] 10/10/17 04/04/19 History Levothyroxine TAB* [Synthroid TAB*] 137 mcg PO QAM 10/10/17 04/04/19 History amLODIPine TAB* [Norvasc 5 mg TAB*] 5 mg PO QAM 10/10/17 04/04/19 History Candesartan Cilexetil 16 mg PO DAILY 04/24/18 04/04/19 History cloNIDine TAB* [Catapres 0.1 MG 0.1 mg PO Q8HR PRN 04/04/19 04/04/19 History TAB*] Allergies: NKA Immunizations: Up to date except flu vaccination per patient. PMhx: -HTN -Hyperlipidemia controlled with Atorvastatin 10 mg PO QAM -Gout controlled c/ Allopurinol 300mg PO QAM -Thyroid cancer -Pt denies hx of autoimmune disease Surgeries: -Thyroidectomy aprrox. 10 years ago -Kidney lithotripsy aprrox. 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 . Non-smoker. ETOH: 3-4 wk. Western diet. No regular exercise. Has a dog and cat. Last PCP visit was approx. 1 year ago. PE: Temp Pulse Resp BP Pulse Ox 97.5 F 90 18 160/97 98 04/05/19 07:15 04/05/19 07:15 04/05/19 07:23 04/05/19 07:15 04/05/19 07:15 General: Pt in no apparent distress sitting up in bed. Pt is overweight. A/ Ox3. HEENT: No lymphadenopathy. No thyroid present. No tenderness to palpation. Scabs noted on top and posterior aspect of scalp. Cardio: RRR. Normal S1 and S2. No MRG. Lungs: Clear to auscultation in all aguilar. Abd: Non-tender/ non-distended. No guarding or rebound tenderness. Normal bowel sounds. Skin: Petechiae and purpura noted on multiple locations including arms, legs and abdomen. Abscess noted on R anterior chest wall appears to be healing and is non-tender and is cool to touch. Extremities: 2+ radial and pedal pulses. Sensation to fine touch intact. Abnormal Lab Results 10/24/19 10/24/19 10/24/19 23:05 23:05 23:05 WBC RBC Hgb Hct MCV MCH MCHC RDW Plt Count MPV Neut % (Auto) Lymph % (Auto) Sevier % (Auto) Eos % (Auto) Baso % (Auto) Absolute Neuts (auto) Absolute Lymphs (auto) Absolute Monos (auto) Absolute Eos (auto) Absolute Basos (auto) Absolute Nucleated RBC Nucleated RBC % Plt Count ,Citrate INR (Anticoag Therapy) 0.99 Sodium 138 Potassium 3.4 L Chloride 106 Carbon Dioxide 24 Anion Gap 8 BUN 25 H Creatinine 1.16 Est GFR ( Amer) 76.5 Est GFR (Non-Af Amer) 63.2 BUN/Creatinine Ratio 21.6 H Glucose 164 H Calcium 9.1 Total Bilirubin 0.60 AST 26 ALT 19 Alkaline Phosphatase 109 H Total Protein 7.1 Albumin 4.2 Globulin 2.9 Albumin/Globulin Ratio 1.4 Blood Type O Positive Antibody Screen 04/04/19 04/05/19 04/05/19 23:06 00:09 02:11 WBC 8.7 RBC 4.62 Hgb 14.0 Hct 41 L MCV 89 MCH 30 MCHC 34 RDW 14 Plt Count 4 L* MPV 10.4 Neut % (Auto) 52.5 Lymph % (Auto) 35.2 Sevier % (Auto) 8.6 Eos % (Auto) 3.4 Baso % (Auto) 0.3 Absolute Neuts (auto) 4.6 Absolute Lymphs (auto) 3.1 Absolute Monos (auto) 0.8 Absolute Eos (auto) 0.3 Absolute Basos (auto) 0.0 Absolute Nucleated RBC 0.0 Nucleated RBC % 0.1 Plt Count ,Citrate 2 L* INR (Anticoag Therapy) Sodium Potassium Chloride Carbon Dioxide Anion Gap BUN Creatinine Est GFR ( Amer) Est GFR (Non-Af Amer) BUN/Creatinine Ratio Glucose Calcium Total Bilirubin AST ALT Alkaline Phosphatase Total Protein Albumin Globulin Albumin/Globulin Ratio Blood Type O Positive Antibody Screen Negative 04/05/19 04/05/19 06:05 06:05 WBC 11.9 H RBC 4.80 Hgb 14.7 Hct 43 MCV 89 MCH 31 MCHC 35 RDW 14 Plt Count 3 L* MPV 10.6 H Neut % (Auto) 80.4 Lymph % (Auto) 16.7 Sevier % (Auto) 1.7 Eos % (Auto) 0.3 Baso % (Auto) 0.9 Absolute Neuts (auto) 9.6 H Absolute Lymphs (auto) 2.0 Absolute Monos (auto) 0.2 Absolute Eos (auto) 0.0 Absolute Basos (auto) 0.1 Absolute Nucleated RBC 0.0 Nucleated RBC % 0.0 Plt Count ,Citrate INR (Anticoag Therapy) Sodium 137 Potassium 4.0 Chloride 107 Carbon Dioxide 23 Anion Gap 7 BUN 26 H Creatinine 1.13 Est GFR ( Amer) 78.8 Est GFR (Non-Af Amer) 65.1 BUN/Creatinine Ratio 23.0 H Glucose 188 H Calcium 9.3 Total Bilirubin AST ALT Alkaline Phosphatase Total Protein Albumin Globulin Albumin/Globulin Ratio Blood Type Antibody Screen Assesment/Impression: 63 yo M c/ PMHx of HTN, Gout, hypothyroidism presenting c/ prolonged epistaxis and excessive bleeding 2/2 minor trauma for several weeks following rupture of chest abscess. Pt noted to have severe thrombocytopenia 2/2 to ITP most likely. Plan: #Thrombocytopenia -excessive bleeding secondary to ITP following infection most likely. Waiting on blood smear for platelet morphology, presence of blast cells to r/o luekemia. -Leukocytosis c/ left shift present on repeat CBC, evidence of infectious etiology despite lack of fever/chills. -R/o viral source c/ serology HIV and HCV. -unlikely TTP/HUS due to lack of anemia -Prednisone 60 mg -1 U platelet infusion c/ repeat CBC -IVIG 1g/kg daily for 2 days -monitor BG -bleeding precautions -remain on telemetry #HTN -continue current medications
--- NOTE | 2019-04-05 16:34 | PN ---
Subjective Date of Service: 04/05/19 Interval History: History reviewed, Patient started bruises here and there 3 weeks ago after an skin localized infection on his right chest. He went to [facility] 2 weeks ago and returned. No new medication added other than clonidine for htn 1 month ago. He felt nose blocking, but no nose bleeding anymore. no other GI bleding or hematuria noted. Objective Active Medications: Amlodipine Besylate (Norvasc Tab*) 10 mg PO QAM [facility] Last Admin: 04/05/19 08:46 Dose: 10 mg Atorvastatin Calcium (Lipitor*) 10 mg PO QAM [facility] Last Admin: 04/05/19 08:46 Dose: 10 mg Sodium Chloride (Ns 0.9% 1000 Ml) 1,000 mls @ 100 mls/hr IV PER RATE [facility] Last Admin: 04/05/19 14:55 Dose: 100 mls/hr Immune Globulin 80 gm/ Immune (Globulin 8 gm/ IV Solution) 880 mls @ 0 mls/hr IV ONCE ONE; Protocol Stop: 04/06/19 13:01 Levothyroxine Sodium (Synthroid Tab*) 137 mcg PO 0600 [facility] Last Admin: 04/05/19 06:25 Dose: 137 mcg Pantoprazole Sodium (Protonix Tab*) 40 mg PO DAILY [facility] Last Admin: 04/05/19 11:26 Dose: 40 mg Prednisone (Deltasone Tab*) 60 mg PO DAILY [facility] Last Admin: 04/05/19 11:27 Dose: 60 mg Valsartan (Diovan Tab*) 80 mg PO DAILY [facility] Last Admin: 04/05/19 08:46 Dose: 80 mg Vital Signs - 8 hr 04/05/19 04/05/19 04/05/19 09:45 11:15 13:20 Temperature 98.4 F 97.9 F Pulse Rate 103 106 Respiratory 20 20 18 Rate Blood Pressure 164/91 152/96 (mmHg) O2 Sat by Pulse 97 99 Oximetry 04/05/19 04/05/19 04/05/19 14:20 14:56 15:15 Temperature 98.8 F 98.1 F 98.1 F Pulse Rate 98 100 98 Respiratory 18 18 16 Rate Blood Pressure 149/86 153/84 160/91 (mmHg) O2 Sat by Pulse 97 96 96 Oximetry 04/05/19 15:49 Temperature 98 F Pulse Rate 101 Respiratory 18 Rate Blood Pressure 162/89 (mmHg) O2 Sat by Pulse 97 Oximetry Oxygen Devices in Use Now: None Exam: GEN: well, NAD HEENT: no active bleeding HEART: S1S2, no murmur Lung: clear Abdomen: splenomegaly, 5cm under left costal rib, mild hepatomegaly Extremity: no peripheral edema, joint no swelling Skin: scattered petechiae on bilateral legs, bruises seen on bilateral arms. Result Diagrams: 04/05/19 06:05 04/05/19 06:05 Assess/Plan/Problems-Billing Assessment: 63 y/o M with PMH of HTN, HLD, Gout, Hypothyroidism presented with epistaxis, easy bruising and bleeding for 3 weeks. Found to have isolated thrombocytopenia( Plt-3L). Most likely ITP - Patient Problems (1) Acute ITP Current Visit: Yes Status: Acute Code(s): D69.3 - IMMUNE THROMBOCYTOPENIC PURPURA SNOMED Code(s): 68717585 Comment: - Isolated thrombocytopenia likely to be ITP, could be idopathic ITP or secondary ITP which was induced by infection such as HIV and HCV - check HIV and HCV today - Plt transfusion 1U, IVIG x 2 days, oral steroid as per panel monitor's recommendation - will check CBC agian pm - if plt> 20,000, can be discharged and follow up outpt - put on bleeding precaution (2) Hypertension Current Visit: Yes Status: Acute Code(s): I10 - ESSENTIAL (PRIMARY) HYPERTENSION SNOMED Code(s): 69438417 Comment: On valsartan and amlopdipine amlodipine was increased to 10mg qam (3) DVT prophylaxis Current Visit: Yes Status: Acute Code(s): Z29.9 - ENCOUNTER FOR PROPHYLACTIC MEASURES, UNSPECIFIED SNOMED Code(s): 979962912 Comment: None because of severe thrombocytopenia Status and Disposition: Medicine Inpatient; Hem/Onc following Attestation Documenting Resident: Milli Varghese Supervising Physician: Gabriela Bro Attestation: This service has been performed in part by a resident under the direction of a teaching physician.I, Gabriela Bro, performed the service, or was physically present during the critical, or garibay portions of the service, furnished by the resident. I participated in the management of the patient.
[2019-04-05 16:39] LABS: ABS Lymphocytes 2.5 10^3/ul (1.0-4.8); ABS Monocytes 0.2 10^3/ul (0-0.8); ABS Neutrophils 11.6 10^3/ul (1.5-7.7); Hematocrit 39 % (42-52); Hemoglobin 13.5 g/dL (14.0-18.0); Lymphocyte % 17.2 %; Mean Corpuscular HGB Conc 35 g/dL (31-36); Mean Corpuscular Hemoglobin 30 pg (27-31); Mean Corpuscular Volume 87 fL (80-94); Platelet Count 3 10^3/uL (150-450); Red Blood Count 4.46 10^6 /uL (4.18-5.48); Red Cell Distribution Width 14 % (10-15); White Blood Count 14.4 10^3/uL (3.5-10.8)
[2019-04-05 17:48] LABS: Hepatitis C Antibody Negative (Negative)
[2019-04-05 18:41] LABS: HIV 4th Generation Nonreactive (Nonreactive)
[2019-04-05 21:12] LABS: Mean Platelet Volume 8.3 fL (7.4-10.4); Platelet Count 40 10^3/uL (150-450)
[2019-04-06] MEDS: NS 0.9% 1000 ML** 1,000 ML IV SCH (03:53)
[2019-04-06] MEDS: Levothyroxine TAB* 137 MCG TAB PO SCH (05:47)
[2019-04-06 06:07] LABS: ABS Basophils 0.1 10^3/ul (0-0.2); ABS Eosinophils 0.1 10^3/ul (0-0.6); ABS Neutrophils 12.5 10^3/ul (1.5-7.7); Eosinophil % 0.6 %; Hematocrit 37 % (42-52); Hemoglobin 12.6 g/dL (14.0-18.0); Lymphocyte % 22.7 %; Mean Corpuscular HGB Conc 34 g/dL (31-36); Mean Corpuscular Hemoglobin 30 pg (27-31); Mean Corpuscular Volume 88 fL (80-94); Mean Platelet Volume 9.5 fL (7.4-10.4); Platelet Count 17 10^3/uL (150-450); Red Blood Count 4.24 10^6 /uL (4.18-5.48); Red Cell Distribution Width 15 % (10-15); White Blood Count 17.7 10^3/uL (3.5-10.8)
[2019-04-06 06:17] LABS: Calcium 8.7 mg/dL (8.6-10.3); EGFR African American 85.8 (>60); EGFR Non-African American 70.9 (>60); Potassium 3.4 mmol/L (3.5-5.0)
[2019-04-06] MEDS: Pantoprazole TAB * 40 MG TAB PO SCH (08:56)
[2019-04-06] MEDS: Valsartan TAB* 80 MG PO SCH (08:56)
[2019-04-06] MEDS: Potassium Chlor TAB* 20 MEQ TAB.ER PO SCH (08:57)
[2019-04-06] MEDS: predniSONE TAB* 20 MG PO SCH (08:57)
[2019-04-06] MEDS: amLODIPine TAB* 5 MG PO SCH (08:58)
[2019-04-06] MEDS: Atorvastatin* 10 MG TAB PO SCH (08:58)
--- NOTE | 2019-04-06 12:41 | PN ---
Subjective Date of Service: 04/06/19 Interval History: No overt bleeding overnight, nose bleeding stopped. Noted 9 beats of VTach in telemetry, but patient was asymptomatic. Objective Active Medications: Amlodipine Besylate (Norvasc Tab*) 10 mg PO QAM [facility] Last Admin: 04/06/19 08:58 Dose: 10 mg Atorvastatin Calcium (Lipitor*) 10 mg PO QAM [facility] Last Admin: 04/06/19 08:58 Dose: 10 mg Immune Globulin 80 gm/ Immune (Globulin 8 gm/ IV Solution) 880 mls @ 0 mls/hr IV ONCE ONE; Protocol Stop: 04/06/19 13:01 Levothyroxine Sodium (Synthroid Tab*) 137 mcg PO 0600 [facility] Last Admin: 04/06/19 05:47 Dose: 137 mcg Pantoprazole Sodium (Protonix Tab*) 40 mg PO DAILY [facility] Last Admin: 04/06/19 08:56 Dose: 40 mg Potassium Chloride (Klor Con Er Tab*) 20 meq PO DAILY [facility] Last Admin: 04/06/19 08:57 Dose: 20 meq Prednisone (Deltasone Tab*) 60 mg PO DAILY [facility] Last Admin: 04/06/19 08:57 Dose: 60 mg Valsartan (Diovan Tab*) 80 mg PO DAILY [facility] Last Admin: 04/06/19 08:56 Dose: 80 mg Vital Signs - 8 hr 04/06/19 04/06/19 07:23 08:00 Temperature 97.7 F Pulse Rate 92 Respiratory 20 17 Rate Blood Pressure 144/95 (mmHg) O2 Sat by Pulse 98 Oximetry Oxygen Devices in Use Now: None Exam: GEN: well, NAD HEENT: no active bleeding HEART: S1S2, no murmur Lung: clear Abdomen: soft, non tender. Extremity: no peripheral edema, joint no swelling Skin: scattered petechiae on bilateral legs, bruises seen on bilateral arms, no new bruises or petechiae. Result Diagrams: 04/06/19 05:38 04/06/19 05:38 Assess/Plan/Problems-Billing Assessment: 63 y/o M with PMH of HTN, HLD, Gout, Hypothyroidism presented with epistaxis, easy bruising and bleeding for 3 weeks. Found to have isolated thrombocytopenia , likely ITP - Patient Problems (1) Acute ITP Current Visit: Yes Status: Acute Code(s): D69.3 - IMMUNE THROMBOCYTOPENIC PURPURA SNOMED Code(s): 54311406 Comment: - Isolated thrombocytopenia likely to ITP - HIV, HCV neg - Plt transfusion 1U, IVIG x 2 days, oral steroid as per legal investigator's recommendation - will check CBC agian pm - if plt> 20,000, can be discharged and follow up with legal investigator outpatient - put on bleeding precaution (2) Hypertension Current Visit: Yes Status: Acute Code(s): I10 - ESSENTIAL (PRIMARY) HYPERTENSION SNOMED Code(s): 19464405 Comment: On valsartan and amlopdipine amlodipine was increased to 10mg qam to follow up outpatient, may need tapering down once off steroid (3) Hypokalemia Current Visit: Yes Status: Acute Code(s): E87.6 - HYPOKALEMIA SNOMED Code( s): 98606698 Comment: due to high dose steroid Mg 2.0 replace with 20meq KCL tablet while on steroid (4) DVT prophylaxis Current Visit: Yes Status: Acute Code(s): Z29.9 - ENCOUNTER FOR PROPHYLACTIC MEASURES, UNSPECIFIED SNOMED Code(s): 228238486 Comment: None because of severe thrombocytopenia Status and Disposition: Medicine Inpatient; Hem/Onc following Attestation Documenting Resident: Milli Varghese Supervising Physician: Gabriela Bro Attestation: This service has been performed in part by a resident under the direction of a teaching physician.I, Gabriela Bro, performed the service, or was physically present during the critical, or garibay portions of the service, furnished by the resident. I participated in the management of the patient.
[2019-04-06] MEDS ORDERED: IMMUNE GLOBULN IV ONE (13:00)
[2019-04-06 14:34] LABS: ABS Basophils 0.1 10^3/ul (0-0.2); ABS Lymphocytes 2.2 10^3/ul (1.0-4.8); ABS Monocytes 0.3 10^3/ul (0-0.8); ABS Neutrophils 11.1 10^3/ul (1.5-7.7); Eosinophil % 0.2 %; Hematocrit 39 % (42-52); Hemoglobin 13.2 g/dL (14.0-18.0); Lymphocyte % 16.1 %; Mean Corpuscular HGB Conc 34 g/dL (31-36); Mean Corpuscular Hemoglobin 30 pg (27-31); Mean Corpuscular Volume 87 fL (80-94); Mean Platelet Volume 9.7 fL (7.4-10.4); Platelet Count 16 10^3/uL (150-450); Red Blood Count 4.41 10^6 /uL (4.18-5.48); Red Cell Distribution Width 14 % (10-15); White Blood Count 13.7 10^3/uL (3.5-10.8)
[2019-04-07] MEDS: Levothyroxine TAB* 137 MCG TAB PO SCH (05:36)
[2019-04-07 06:42] LABS: Hematocrit 35 % (42-52); Hemoglobin 11.9 g/dL (14.0-18.0); Mean Corpuscular HGB Conc 34 g/dL (31-36); Mean Corpuscular Hemoglobin 30 pg (27-31); Mean Corpuscular Volume 88 fL (80-94); Mean Platelet Volume 10.9 fL (7.4-10.4); Platelet Count 23 10^3/uL (150-450); Red Blood Count 3.96 10^6 /uL (4.18-5.48); Red Cell Distribution Width 15 % (10-15); White Blood Count 14.3 10^3/uL (3.5-10.8)
[2019-04-07 07:10] LABS: ABS Basophils 0.1 10^3/ul (0-0.2); ABS Eosinophils 0.2 10^3/ul (0-0.6); ABS Lymphocytes 4.6 10^3/ul (1.0-4.8); ABS Monocytes 1.1 10^3/ul (0-0.8); ABS Neutrophils 8.3 10^3/ul (1.5-7.7); Eosinophil % 1.5 %; Lymphocyte % 32.2 %
[2019-04-07] MEDS: Valsartan TAB* 80 MG PO SCH (08:51)
[2019-04-07] MEDS: Pantoprazole TAB * 40 MG TAB PO SCH (08:51)
[2019-04-07] MEDS: Atorvastatin* 10 MG TAB PO SCH (08:52)
[2019-04-07] MEDS: predniSONE TAB* 20 MG PO SCH (08:52)
[2019-04-07] MEDS: amLODIPine TAB* 5 MG PO SCH (08:52)
[2019-04-07] MEDS: Potassium Chlor TAB* 20 MEQ TAB.ER PO SCH (08:53)
[2019-04-07 12:10] VITALS: BP 149/93
--- NOTE | 2019-04-07 18:39 | DS ---
CC: Dr. Naveen Galvin * DISCHARGE SUMMARY: DATE OF ADMISSION: 04/05/19 DATE OF DISCHARGE: 04/07/19 PRIMARY CARE PHYSICIAN: Dr. Naveen Galvin. 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 SECONDARY DIAGNOSES: 1. Hypertension. 2. Hypothyroidism. CONSULTS: Dr. Marc of Oncology/Hematology. DISCHARGE MEDICATIONS: 1. Prednisone 60 mg to complete a 2-week course or as determined by Hematology. 2. Pantoprazole 40 mg daily only while on high dose steroids. 3. Atorvastatin 10 mg daily. 4. Amlodipine 5 mg daily. 5. Candesartan 16 mg daily. 6. Levothyroxine 137 mcg daily. 7. Allopurinol 300 mg daily. HISTORY OF PRESENT ILLNESS: Mr. Hancock is a 63-year-old man with hypertension, gout, hypothyroidism, who was presenting with epistaxis. He states he was in his usual state of health until 3 weeks ago when he noticed a furuncle on his chest wall that spontaneously drained and healed. Approximately 1 week after it healed, the patient noticed that any small cut or bruise would bleed profusely. He mostly ignored the symptom until day prior to presentation when he began having epistaxis which was unrelenting. The patient also noticed multiple bruises even with minor trauma, so he decided to come to the emergency room. HOSPITAL COURSE: In the emergency room, the patient's platelets were noted to be 4. Hematology was immediately consulted and they recommended to admit the patient to the hospital for high dose steroids and possible IVIG the next morning. In the emergency room, the patient was given intranasal oxymetazoline, which stopped his nosebleed and he was admitted upstairs for further care. By next morning, he was seen by hematology team who recommended to continue prednisone 60 mg daily for approximately 2-week course and to also began infusions with IVIG daily for 2 days. On first full day of admission, the patient did receive 1 unit of platelets and he was noted to respond with platelet count of 40 over his second night, however this decreased to 17 by morning time. Hematology recommended to keep the patient admitted until platelets were again above 20. By next day, the patient received second dose of IVIG and was continued on prednisone and then by next morning, which was day of discharge, the patient's platelets were 23. The patient experienced no further bleeding episodes in the hospital and denied melena, bright red blood in stool, hematemesis or hematuria. He denied any trauma or swelling in the hospital. His hemoglobin on discharge was 11.9 which is 1.3 drop from day prior; however, over that day the patient received significant IV fluids from IVIG infusion. The patient denied heartburn or melena; however, he had been started on pantoprazole by hematology team and the patient was educated to only continue this while on prednisone and to not stay on this medication indefinitely . He was also educated to not take NSAIDs with steroids during this time. REVIEW OF SYSTEMS: By the day of discharge, a complete 10-point review of systems was performed and the patient denied symptoms. He states he has had no new petechiae and the ones he had have been mostly resolving. PHYSICAL EXAMINATION: Afebrile, heart rate 86, blood pressure 149/63, respiratory rate 20, oxygen saturation 96% on room air. In general, he is a well-appearing man in no acute distress. He is alert, interactive and pleasant. HEENT: Gum bleeding has resolved. OP clear. Most mucous membranes. Neck: No JVD. Lungs: Clear to auscultation bilaterally. Heart: Regular rate and rhythm. No murmurs, gallops, or rubs. Abdomen: With resolving bruises. Soft, nontender and nondistended. No hepatosplenomegaly. Extremities: Warm and well perfused without evidence of edema. Skin with petechiae over legs, arms and trunk, scattered bruises resolving. Neuro: A and O x3. Strength 5/5 in four extremities. PERTINENT STUDIES AND LABS: CBC notable for mild leukocytosis while on steroids. Hemoglobin 11.9 with MCV 88. Platelets 23 on day of discharge. BMP noted for frequent hypokalemia. Hep C screen negative. HIV screen negative. DISCHARGE PLAN: The patient should follow up with Dr. Marc this week for ongoing monitoring in hematology clinic for his newly diagnosed ITP. He was ordered for repeat CBC 2 days from discharge. Per recommendations from Dr. Pedroza, he will be continued on 60 mg of prednisone and he was given a total of 2-week course; however, this may be changed in the hematology clinic. He was given PPI to take while on steroids but educated to not stay on this medication indefinitely. The patient was also educated to not take NSAIDs while taking prednisone and he was extensively educated on signs of gastrointestinal bleeding, including melena, bright red blood per rectum, hematemesis or coffee-ground emesis. He was educated to return to the hospital for bleeding from other sites in his body or new symptoms of fever. His home clonidine was discontinued and he had good blood pressure control in hospital on his other blood pressure medications , although he was noted to have a low potassium which improved with repletion, and it is known that potassium may improve blood pressure control more than a low-salt diet. The patient was also ordered for a BMP to obtain 2 days after discharge and PCP or Hematology can consider starting the patient on supplement if he continues to have low serum potassium. He should eat healthy diet, low in processed foods and high in potassium rich foods. He should resume activity as tolerated. DISPOSITION: To home. CONDITION: Good. TIME SPENT: Approximately 60 minutes was spent on discharge of this patient, more than half of which was spent with care coordination at bedside for interview and exam. [id number]/[facility] #: [id number] ONELIA
== END 2019-04-07 14:40 | disposition home or self-care (01) | DRG 813 ==
LOC: ED 22:38 → MEDTELE 04-05 02:48
PROVIDERS: ADMIT Internal Medicine; ATTEND Internal Medicine
PROC: 30233R1 Transfusion of Nonautologous Platelets into Peripheral Vein, Percutaneous Approach (ICD-10-PCS; principal; 2019-04-05)
PROC: 30233S1 Transfusion of Nonautologous Globulin into Peripheral Vein, Percutaneous Approach (ICD-10-PCS; 2019-04-05)
DX: D69.3 Immune thrombocytopenic purpura (principal); I47.2 Ventricular tachycardia; R04.0 Epistaxis; E89.0 Postprocedural hypothyroidism; I10 Essential (primary) hypertension; M10.9 Gout, unspecified; E78.5 Hyperlipidemia, unspecified; E78.00 Pure hypercholesterolemia, unspecified; E87.6 Hypokalemia; T38.0X5A Adverse effect of glucocorticoids and synthetic analogues, initial encounter; D72.828 Other elevated white blood cell count; Y92.239 Unspecified place in hospital as the place of occurrence of the external cause; Z85.850 Personal history of malignant neoplasm of thyroid; Z87.442 Personal history of urinary calculi; Z72.89 Other problems related to lifestyle
CPT/HCPCS: 36415; 80048; 80053; 83036; 83735; 85025; 85049; 85060; 85610; 86803; 86850; 86900; 86901; 87389; 90283; 99223; 99284; A9270-GY; J1569; J7512; P9035